=== PATIENT | female | born 1990 ===

== ENCOUNTER 2017-09-07 09:15 | Emergency (ER) | payer SELFPAY ==
[2017-09-07 09:59] VITALS: BMI 39.0
[2017-09-07] MEDS ORDERED: Lactated Ringer's 1,000 ML IV SCH (10:15)
[2017-09-07 11:20] LABS: BASO % 0.3 % (0.0-2.0); EOS % 0.2 % (0.0-4.0); HEMOGLOBIN 10.8 g/dL (12.0-16.0); LYMPH % 12.4 % (20.0-40.0); MEAN CELL VOLUME 82.1 fl (81.0-99.0); MEAN CORPUSCULAR HEMOGLOBIN 27.5 pg (27.0-31.0); MEAN CORPUSCULAR HGB CONC 33.4 g/dL (33.0-37.0); MEAN PLATELET VOLUME 7.8 fl (7.2-11.7); MONO # 0.6 K/uL (0.0-0.8); MONO % 7.3 % (0.0-10.0); NEUT # 6.5 K/uL (1.8-7.0); NEUT % 79.8 % (50.0-75.0); RBC 3.93 Mil/uL (3.80-5.20); RED CELL DISTRIBUTION WIDTH 15.8 % (11.5-14.5); SQUAMOUS EPITHIAL 12 /hpf (0-5); URINE BACTERIA RARE (<OCC); URINE BILIRUBIN NEGATIVE (NEGATIVE); URINE BLOOD NEGATIVE (NEGATIVE); URINE CLARITY CLOUDY (Clear); URINE COLOR YELLOW (YELLOW); URINE GLUCOSE (UA) NEG (Normal); URINE LEUKOCYTE ESTERASE NEG Leu/uL (Negative); URINE PROTEIN NEGATIVE (NEGATIVE); URINE UROBILINOGEN 0.2-1.0 mg/dL (0.2-1.0); WHITE BLOOD COUNT 8.1 K/uL (4.8-10.8)
[2017-09-07 11:28] LABS: ALB/GLOB RATIO 0.9 (1.0-2.1); ALBUMIN 3.4 g/dL (3.5-5.0); ALT/SGPT 27 U/L (9-52); AST/SGOT 30 U/L (14-36); BLOOD UREA NITROGEN 6 mg/dl (7-17); CALCIUM 8.9 mg/dL (8.4-10.2); GFR AFRICAN-AMERICAN > 60; GFR NON-AFRICAN AMERICAN > 60
--- NOTE | 2017-09-07 12:54 | US ---
PROCEDURE: OB Pelvic Ultrasound HISTORY: threatened ptl LMP: Not known by patient. COMPARISON: No prior comparison available. Patient reports she was told her estimated date of delivery is 11/27/2017 which suggests estimated gestational age of 28 weeks 3 days currently. FINDINGS: UTERUS: A single viable intrauterine gestation is identified in breech lie with an anterior fundal placenta present an average ultrasonic age of 26 weeks 5 days. cardiac activity recorded at 148 beats per minute. There is no placental abruption or previa appreciated. Cervical length measures 4.98 cm with marginal funneling of the internal cervical os. No cervical mass is appreciable. The following mean biometry was obtained: Biparietal diameter 6.6 cm corresponds to 26 weeks 5 days. Head circumference 24 point 6 cm corresponds to a 26 weeks 5 days. Abdominal circumference 22.1 cm corresponds to 26 weeks 4 days. Femur length 5.0 cm cm corresponds to 26 weeks 5 days. HC/AC ratio measures 1.1 which is within normal range. Estimated weight 2 lb 2 oz or 964.42 g. Estimated date of delivery 12/09/2017. anatomical survey was not performed on this emergent that exam and can be obtained electively. RIGHT OVARY: Not identified. LEFT OVARY: Not identified. FREE FLUID: None. OTHER FINDINGS: None. IMPRESSION: A single viable intrauterine gestation is identified in breech lie with an average ultrasonic age of 26 weeks 5 days and cardiac activity of 140 beats per minute. Trace funneling is appreciate the internal cervical os with cervical length 4.98 cm. Full anatomical survey available electively.
--- NOTE | 2017-09-07 14:49 | OBHP ---
Datetime: 09/07/2017 12:26 IP Adm Impression: , intrauterine IP Admit Plan: Observation/Evaluation Admit Comment, IP Provider: 27 yo edc 8 by 12wk us presents to meet w/ c/o decreased appetite , bilateral upper quad abd pain, intermttent since this early am and diarrhea. Denies n/v, decreased fm, pprom, vag bleeding, ctxs or fever. states last meal was dinner last nigh had home baked chicken _ for lunch ham delimeat sandwich. pmhx _pshx: denies nkda medic:pnv shx: denies etoh, illicit drug use or tobacco i: 26.6wks abd pain in preg diarrhea vag d/x p: ivf cbc, cmp, ua us for cerv length advised to stop eating deli meat while and . risks d/w pt. f/u in ob clinic in 1wk for eval of vag d/c addendum: pt advised of nl findings on us _ labs(excluding hgb) rx Fe . Pelvic Type - PN: Adequate Abdomen - PN: Normal Lungs - PN: Normal Heart - PN: Normal Neurologic - PN: Normal HEENT - PN: Normal General - PN: Normal Presentation-Admit: Vertex FHR - Baseline A Provider: 130 Membranes, Provider: Intact EGA AdmitDate IP: 26.6 Vital Signs Provider: Within Normal Limits IP Chief Complaint: Maternal discomfort NICHD Variability Prov Fetus A: Moderate 6-25bpm NICHD Accel Fetus A IP Provider: 15X15 FHR Category Provider Fetus A: Category I NICHD Decel Fetus A IP Provider: None Dilatation, Provider: 0 Effacement, Provider: Station, Provider: [facility] Genitourinary Exam: Normal
[2017-09-07 17:48] VITALS: BP 108/64; PULSE 94
== END 2017-09-07 13:47 | disposition home or self-care (01) ==
LOC: H.EROB2 09:15 → H.L&D 09:58 → H.EROB2 13:47
DX: O26.92 Pregnancy related conditions, unspecified, second trimester (principal); R10.2 Pelvic and perineal pain; R19.7 Diarrhea, unspecified; R63.0 Anorexia; Z3A.26 26 weeks gestation of pregnancy

== ENCOUNTER 2017-12-01 19:59 | Inpatient (IN) | payer MEDICAID, SELFPAY ==
[2017-12-01 20:45] VITALS: BMI 40.2
[2017-12-01] MEDS ORDERED: Oxytocin 30 UNIT 30 UNITS/500 ML BAG IV ONE (20:45)
[2017-12-01 21:32] LABS: BASO # 0.1 K/uL (0.0-0.2); BASO % 0.9 % (0.0-2.0); EOS # 0.1 K/uL (0.0-0.7); EOS % 1.4 % (0.0-4.0); HEMOGLOBIN 11.5 g/dL (12.0-16.0); LYMPH # 2.7 K/uL (1.0-4.3); LYMPH % 31.2 % (20.0-40.0); MEAN CELL VOLUME 81.3 fl (81.0-99.0); MEAN CORPUSCULAR HEMOGLOBIN 27.1 pg (27.0-31.0); MEAN CORPUSCULAR HGB CONC 33.4 g/dL (33.0-37.0); MEAN PLATELET VOLUME 8.6 fl (7.2-11.7); MONO # 0.6 K/uL (0.0-0.8); MONO % 7.3 % (0.0-10.0); NEUT # 5.2 K/uL (1.8-7.0); NEUT % 59.2 % (50.0-75.0); RBC 4.25 Mil/uL (3.80-5.20); RED CELL DISTRIBUTION WIDTH 15.9 % (11.5-14.5); WHITE BLOOD COUNT 8.7 K/uL (4.8-10.8)
[2017-12-01 21:39] LABS: ALB/GLOB RATIO 1.1 (1.0-2.1); ALBUMIN 3.6 g/dL (3.5-5.0); ALT/SGPT 28 U/L (9-52); AST/SGOT 34 U/L (14-36); BLOOD UREA NITROGEN 13 mg/dl (7-17); CALCIUM 9.4 mg/dL (8.4-10.2); GFR NON-AFRICAN AMERICAN > 60
--- NOTE | 2017-12-01 22:02 | OBHP ---
Datetime: 12/01/2017 21:52 IP Adm Impression: Term, intrauterine ; No Active Labor IP Chief Complaint Other: GDM IP Adm Impression Other: GDM IP Admit Plan: Admit to unit; Initiate labor induction protocol Admit Comment, IP Provider: 27yo at 39w0d presents to the LND for IOL due to gestational DM. Ethan carr repports that the has been complicated with GDM and has been having follow up with rajat HOLT who recommended IOL at 39wks. Pt reports good movements, denies VB or LOF. OBHx: - ist delivery uncomplicated PMHx: Nill of Note FHx: Brother has DM SurgicalHx: None SHX: No Toxic habits O: Afebrile Heart: RRR Chest: CTA B/L Abd: Soft,NT ,Bs- present FHR: category 1 [place]: Irregular SVE: 3-4/50/-3, membranes intact. Cephalic confirmed with a bedside sonogram Assessment; IUP at 39wks GDM Encounter for Induction of labor NST - Reactive Plan: Admit to LND Cervical ripening with cytotec Penicillin for GBS prophylaxis May have epidural. Pelvic Type - PN: Adequate Extremities - PN: Normal Abdomen - PN: Normal Back - PN: Normal Breast - PN: Normal Lungs - PN: Normal Heart - PN: Normal Thyroid - PN: Normal Neurologic - PN: Normal HEENT - PN: Normal General - PN: Normal Presentation-Admit: Vertex FHR - Baseline A Provider: 130s Membranes, Provider: Intact Contraction Comments Provider: occasional Gestation - Est Wks by US: 39.0 EGA AdmitDate IP: 39.0 IP Chief Complaint: Scheduled induction of labor; Maternal discomfort NICHD Variability Prov Fetus A: Moderate 6-25bpm NICHD Accel Fetus A IP Provider: 15X15 FHR Category Provider Fetus A: Category I NICHD Decel Fetus A IP Provider: None Dilatation, Provider: 3-4 Effacement, Provider: 50 Station, Provider: -3 Genitourinary Exam: Normal DTRs - PN: Normal
[2017-12-01] MEDS: Lactated Ringer's 1,000 ML IV SCH (23:19)
[2017-12-02] MEDS ORDERED: Nalbuphine 20 mg/ml Inj (1 ml) IVP PRN (00:27)
[2017-12-02] MEDS: Lactated Ringer's 1,000 ML IV SCH (02:30)
[2017-12-02] MEDS ORDERED: Fentanyl/Bupivacaine HCl 250 ML EPI ONE (02:49)
[2017-12-02] MEDS ORDERED: Lidocaine 1% MPF (30 ml) Inj ONE (05:20)
--- NOTE | 2017-12-02 05:32 | OBPN ---
Datetime: 12/02/2017 05:28 IP Progress Impression: Normal progression of labor; Reassuring heart rate IP Procedures: Sterile Vag Exam IP Progress Plan: Continue present management; Anticipate Vaginal Delivery Membranes, Provider: Ruptured Amniotic Fluid Color, Provider: Clear Contraction Comments Provider: Q 2-3 FHR - Baseline A Provider: 153 Gestation - Est Wks by US: 39.1 Presentation-Admit: Vertex IP Progress Note Comment: IUP at 39wks in labor GDM Plan: Continue labor monitoring Anticipate vaginal delivery NICHD Accel Fetus A IP Provider: 15X15 FHR Category Provider Fetus A: Category I NICHD Variability Prov Fetus A: Moderate 6-25bpm Dilatation, Provider: 10 Effacement, Provider: 100 Station, Provider: -=3 NICHD Decel Fetus A IP Provider: None Datetime: 09/07/2017 12:26 Vital Signs Provider: Within Normal Limits
--- NOTE | 2017-12-02 07:12 | OBDS ---
DELIVERY PERSONNEL Delivery Doctor: Antwon Gambino MD Vibration Analyst: Pricilla Nash RN Anesthesiologist: Davi Ruff MD MATERNAL INFORMATION Medications in Delivery: Pitocin 30u/500mL of NS Estimated Blood Loss (ml): 350 Placenta Cultured: No Provider Comments: Uncomplicated Spontaneous delivery of a viable infant with score of 3 and 8 . Tight nuchal cord X1. Delivery over an intact perineum. EBL- 350mls Patient tolerated the procedure well. LABOR SUMMARY EDC: 12/08/2017 00:00 No. Babies in Womb: 1 LABOR INFORMATION Reason for Induction: Maternal Diabetes Cervical Ripening Agents: Cytotec @ Oxytocin: N/A Group B Beta Strep: Positive Antibiotics # of Doses: 2 Steroids Given: None Reason Steroids Not Administered: Not Applicable MEMBRANES Membranes Rupture Method: Artificial Rupture of Membranes: 12/02/2017 05:15 Length of Rupture (hrs): 1.55 Amniotic Fluid Color: Clear Amniotic Fluid Amount: Moderate Amniotic Fluid Odor: Normal STAGES OF LABOR Stage 3 hrs: 0 Stage 3 min: 6 VAGINAL DELIVERY Episiotomy: None Laceration Extension: N/A Laceration Type: None Initial Vag Sponge Count: 10 Final Vag Sponge Count: 10 Initial Vag Sharps Count: 1 Final Vag Sharps Count: 1 BABY A INFORMATION Infant Delivery Date/Time: 12/02/2017 06:48 Method of Delivery: Vaginal Born in Route : No : N/A Shoulder Dystocia : No SHOULDER DYSTOCIA BABY A Infant Delivery Date/Time: 12/02/2017 06:48 PRESENTATION/POSITION BABY A Presentation: Cephalic Cephalic Presentation: Vertex Breech Presentation: N/A PLACENTA INFORMATION BABY A Placenta Delivery Time : 12/02/2017 06:54 Placenta Method of Delivery: Spontaneous Placenta Status: Delivered SCORES BABY A Heart Rate 1 min: >100 bpm Resp Effort 1 min: Absent Reflex Irritability 1 min: [place] Muscle Tone 1 min: Flaccid Color 1 min: Blue/Pale Resuscitation Effort 1 min: Tactile Stimulation; Oxygen; PPV/NCPAP SCORE 1 MIN: 3 Heart Rate 5 min: >100 bpm Resp Effort 5 min: Good Cry Reflex Irritability 5 min: Cough or Sneeze or Pulls Away Muscle Tone 5 min: Active Motion Color 5 min: Blue/Pale SCORE 5 MIN: 8 INFANT INFORMATION BABY A Gestational Age at Delivery: 39.1 Gestational Status: Term Infant Outcome : Liveborn Infant Condition : Fair Sex: Female CORD INFORMATION BABY A Suction: Mouth; Nose
[2017-12-02] MEDS ORDERED: OXYTOCIN/0.9 % NS 20 UNIT/1,000 ML BAG IV ONE (07:40)
[2017-12-02] MEDS ORDERED: OXYTOCIN/0.9 % NS 20 UNIT/1,000 ML BAG IV SCH (07:45)
[2017-12-02] MEDS ORDERED: Oxycodone/Acetaminophen 5/325 mg Tab PO PRN ×2 (08:37→14:10)
[2017-12-02] MEDS ORDERED: Benzocaine/Menthol SPRAY TOP PRN ×2 (08:37→14:10)
[2017-12-02] MEDS ORDERED: Multivitamin With Minerals Tab PO SCH (09:00)
[2017-12-03 06:24] LABS: MEAN CELL VOLUME 82.3 fl (81.0-99.0); MEAN CORPUSCULAR HEMOGLOBIN 27.6 pg (27.0-31.0); MEAN CORPUSCULAR HGB CONC 33.6 g/dL (33.0-37.0); RBC 3.61 Mil/uL (3.80-5.20); RED CELL DISTRIBUTION WIDTH 16.6 % (11.5-14.5); WHITE BLOOD COUNT 15.5 K/uL (4.8-10.8)
[2017-12-03] MEDS: Multivitamin With Minerals Tab PO SCH (08:43)
--- NOTE | 2017-12-03 11:51 | OBPPN ---
Datetime: 12/03/2017 09:30 PP Pain Prov: Within normal limits PP Nausea Prov: Denies PP Flatus Prov: Yes PP BM Prov: No PP Breasts Prov: Not Done PP Heart Prov: Normal PP Lungs Prov: Normal PP Abdomen/Uterus Prov: Normal PP Lochia Prov: Normal PP Vulva/Perineum Prov: Not Done PP CVA Tenderness Prov: Not Done PP Extremities Prov: Normal PP C/S Incision Prov: Not Applicable PP Progress Prov: Normal PP Impression Prov: Normal progression PP Plan Prov: Continue present management PP Progress Note Prov: Patient seen and examined at bedside this morning. patient lying comfortably in bed. No acute distress. Reports lower abdominal pain which seems to be improving progressively and well controlled with pain medications. Patient able to ambulate wihtout pain. Reports intermittent h eadache but denies any nausea, vomiting, dizziness, fever, chills, CP, dyspnea or urinary symptoms. P atient reports passing gas per rectum bur no BM yet. Tolerating Po diet well. Afebile, VSS General: Well, No acute distress Heart: RRR, S1S2 present, No murmurs Chest: CTA B/L. no rales, rhonchi or wheezing Abdomen: ND, soft, mild lower abdominal tenderness appriciated Neuro: AAOx3, No focal deficits A/P: 27 yo with GDM, s/p NVD doing well on PPD 1. -Normal progression -Encourage ambulation and -Pp H/H 10.0/29.7 -C/W pain management, Ibuprofen 600 mg Q6hr PRN -Colace 100 mg BID for constipation -Anticipated discharge 12/04/17 -Patient is aware and all the questions were answered. Madi Giron, PGY1 Addendum by Dr. White: I have evaluated the patient independently and I agree with the above Vital Signs Provider PP: Reviewed; Within Normal Limits
[2017-12-03] MEDS ORDERED: Measles, Mumps, and Rubella 0.5 ML VIAL SC ONE (17:00)
[2017-12-04] MEDS ORDERED: Measles, Mumps, and Rubella 0.5 ML VIAL SC ONE (06:55)
[2017-12-04] MEDS: Multivitamin With Minerals Tab PO SCH (08:51)
--- NOTE | 2017-12-04 11:04 | OBPPN ---
Datetime: 12/04/2017 05:51 PP Pain Prov: Within normal limits PP Nausea Prov: Denies PP Flatus Prov: Yes PP BM Prov: Yes PP Breasts Prov: Not Done PP Heart Prov: Normal PP Lungs Prov: Normal PP Abdomen/Uterus Prov: Normal PP Lochia Prov: Normal PP Vulva/Perineum Prov: Not Done PP CVA Tenderness Prov: Normal PP Extremities Prov: Normal PP C/S Incision Prov: Not Applicable PP Progress Prov: Normal PP Impression Prov: Normal progression PP Plan Prov: Continue present management PP Progress Note Prov: Patient seen and examined at bedside. Patient endorses passing flatus and stool x2 since last night. Patient endorses sleeping well last night. Patient denies abdominal pain, and headache from yesterday has resolved. Tolerating PO and ambulating w/o difficulty. Afebile, VSS General: Well, No acute distress Heart: RRR, S1S2 present, No murmurs Chest: CTA B/L. no rales, rhonchi or wheezing Abdomen: ND, soft, mild lower abdominal tenderness appriciated Neuro: AAOx3, No focal deficits A/P: 27 yo with GDM, s/p NVD doing well on PPD 2. -Normal progression -Encourage ambulation and -Pp H/H 10.0/29.7 -C/W pain management, Ibuprofen 600 mg Q6hr PRN -Colace 100 mg BID for constipation -Anticipated discharge 12/04/17 -Patient is aware and all the questions were answered. Yahaira De Souza, PGY1 ob addendum: pt seen _ exmined by me. agree w/ above assessment and plan. rx: feso4 qd x1mo; senokot s #8 prn; pnv Vital Signs Provider PP: Reviewed; Within Normal Limits
--- NOTE | 2017-12-04 11:04 | OBDCSUM ---
Datetime: 12/04/2017 08:59 Discharged to, Provider: Home Follow up at, Provider: OBGYN Disch Instr Activity: Normal activity; May Shower Disch Instr Diet: Regular Discharge Instructions, Provider: Routine instructions given Discharge Diagnosis, Provider: Term Delivered Discharge Time: 12/04/2017 09:33 Follow up in weeks, Provider: 6 weeks/prn Disch Activity Restrictions: No sexual activity; Nothing in vagina - [place], tampons, douche Discharge Comment, Provider: rx: feso4 qd x1mo; senokot s #8 prn; pnv Contraception after Delivery: Undecided Datetime: 09/07/2017 13:29 Disch Instr Activity: Normal activity
[2017-12-04 17:53] VITALS: BP 117/77; PULSE 59; RESP 20; TEMP 98.7; O2SAT 97
== END 2017-12-04 11:18 | disposition home or self-care (01) | DRG 372 ==
LOC: H.EROB2 19:59 → H.L&D 20:45 → H.OB/GYN 12-02 09:54
PROVIDERS: ADMIT Obstetrics & Gynecology; ATTEND Obstetrics & Gynecology
PROC: 4A1HXCZ Monitoring of Products of Conception, Cardiac Rate, External Approach (ICD-10-PCS; 2017-12-01)
PROC: 10E0XZZ Delivery of Products of Conception, External Approach (ICD-10-PCS; principal; 2017-12-02)
PROC: 10907ZC Drainage of Amniotic Fluid, Therapeutic from Products of Conception, Via Natural or Artificial Opening (ICD-10-PCS; 2017-12-02)
DX: O24.429 Gestational diabetes mellitus in childbirth, unspecified control (principal); O69.1XX0 Labor and delivery complicated by cord around neck, with compression, not applicable or unspecified; O99.820 Streptococcus B carrier state complicating pregnancy; Z3A.39 39 weeks gestation of pregnancy; Z37.0 Single live birth; K59.00 Constipation, unspecified; Z83.3 Family history of diabetes mellitus